=== PATIENT | female | born 1945 | race Caucasian/White ===

== ENCOUNTER → 2024-07-03 | Outpatient (CLI) | payer MEDICARE ==
--- NOTE | 2024-07-04 08:52 | HMCIMG ---
NM PARATHYROID IMAG REASON: HYPERPARATHYROIDISM COMPARISON: None TECHNIQUE: Images are obtained following IV administration of 25 mCi technetium 90 9M sestamibi. Immediate images were performed followed by 4 hour delay imaging. FINDINGS: Immediate imaging shows uptake in the thyroid gland. There is also uptake in the salivary glands. 4 hour delay image shows complete resolution of the thyroid uptake. There are no focal residual nodules to suggest parathyroid adenoma. Salivary gland uptake persists. IMPRESSION: 1. Negative parathyroid scan as described.
== END | disposition home or self-care (01) ==
LOC: RAH 12:45
PROVIDERS: ATTEND Internal Medicine Nephrology
DX: E21.3 Hyperparathyroidism, unspecified (principal)
CPT/HCPCS: 78070; A9500